=== PATIENT | female | born 2000 | race Caucasian/White ===

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

== ENCOUNTER → 2019-02-02 | Outpatient (CLI) | payer MEDICAID | LOC: SUN.DIA 07:44 | DX: O24.419 Gestational diabetes mellitus in pregnancy, unspecified control (principal); Z3A.29 29 weeks gestation of pregnancy | CPT/HCPCS: G0108 ==

== ENCOUNTER → 2019-02-17 | Outpatient (CLI) | payer MEDICAID ==
[~2019-02-17] MED LIST changes: +FLINTSTONES W/I1 CTB PO
== END ==
LOC: SUN.DIA 02-09 13:07
DX: O24.419 Gestational diabetes mellitus in pregnancy, unspecified control (principal); Z3A.35 35 weeks gestation of pregnancy
CPT/HCPCS: G0108

== ENCOUNTER → 2019-02-19 | Outpatient (CLI) | payer MEDICAID ==
[~2019-02-19] VITALS: Ht 157.5 cm; Wt 83.6 kg
[2019-02-19 13:56] VITALS: BP 127/73; PULSE 87; TEMP 98.3
[2019-02-19 14:20] VITALS: BP 127/73; PULSE 87; TEMP 98.3
--- NOTE | 2019-02-19 14:32 | NUR ---
[address] NGUYEN NOTIFIED OF PT PRESENCE ON UNIT AND EXAM RESULTS. ORDERS FOR DISCHARGE GIVEN. 1440 HOME CARE INSTRUCTIONS REVIEWED WITH PT AND SO. DENY QUESTIONS OR CONCERNS.
== END ==
LOC: COL.LAB 13:32 → LDRO 13:32
DX: O99.89 Other specified diseases and conditions complicating pregnancy, childbirth and the puerperium (principal); R10.30 Lower abdominal pain, unspecified; M54.5 Low back pain; Z3A.32 32 weeks gestation of pregnancy

== ENCOUNTER 2019-04-13 08:12 | Inpatient (IN) | payer OTHER ==
[~2019-04-13] VITALS: Ht 158.8 cm; Wt 89.5 kg
[2019-04-13] VITALS (8 sets, daily range): BP systolic 119–141; BP diastolic 67–96; PULSE 71–100; TEMP 98.4
--- NOTE | 2019-04-13 19:05 | NUR ---
G2L0. 41-0. Ambulatory to LDR 6 with significant other for scheduled cytotec induction. Clean gown on. EFM and TOCO explained and applied. Pt states she has been eduardo intermittently since 329 this morning. Pt states her contractions are about every 15 minutes apart. Pt breathing through contractions. Palpate moderate. SVE 2/80/-2 per Kristan ORTEGA. VS taken. Plan of care explained to pt and significant other at this time. Questions answered. 1934: Attempt to contract at this time. Message left. 1954: called second time and updated on pt's status. See physican notifcation. Pt and significant other updated on new plan of care and verbalize their understanding. 2036: IV started and labs obtained via IV site. LR bolus infusing per orders. Consents and assessment completed at this time. 2106: FHR strip not reactive at this time. 140bpms moderate variablity no accels, no decels noted. Pt repositioned to left lateral. Plan of care explained to pt. 2129: called update and plan of care changed and new orders received. See physican notifcation. 2203: Pt INT and monitors off to us bathroom for Clean catch UA and urine drug screen per protocol.
[2019-04-13 22:26] LABS: BASO % 0.3 % (0.0-2.0); EOS # 0.4 (0.0-0.7); EOS % 2.9 % (0-4.0); GRAN # 9.1 (1.4-6.5); GRAN % 70.4 % (42.2-75.2); HEMATOCRIT 34.9 % (35.0-45.0); HEMOGLOBIN 11.5 g/dl (12.0-15.0); LYMPH # 2.4 (1.2-3.4); LYMPH % 18.2 % (20.0-51.0); MEAN CELL VOLUME 85 fl (80.0-95.0); MEAN CORPUSCULAR HEMOGLOBIN 28 pg (26.0-32.0); MEAN CORPUSCULAR HGB CONC 33 g/dl (33.0-37.0); MEAN PLATELET VOLUME 9.9 fl (7.4-10.4); MONO % 7.7 % (1.7-9.3); PLATELET COUNT 420 K/mm3 (130-400); RED BLOOD COUNT 4.11 M/mm3 (4.10-5.30); REDCELL DISTRIBUTION WIDTH-CV 14.7 % (11.5-14.5)
[2019-04-13 22:35] LABS: ALANINE AMINOTRANSFERASE < 6 U/L (9-52); ALBUMIN 3.6 gm/dL (3.5-5.0); ALKALINE PHOSPHATASE 146 U/L (50-136); ANION GAP 8 mmol/L (7-16); AST,SGOT 20 U/L (15-37); BILIRUBIN,TOTAL 0.1 mg/dL (0.0-1.0); BLOOD UREA NITROGEN 10 mg/dL (7-17); CALCIUM 9.1 mg/dL (8.4-10.2); CARBON DIOXIDE 22 mmol/L (22-30); CHLORIDE 108 mmol/L (98-107); CREATININE, serum 0.58 (0.52-1.25); GLUCOSE 75 mg/dL (74-106); POTASSIUM 4.3 mmol/L (3.4-5.0); SODIUM 137 mmol/L (137-145); TOTAL PROTEIN 7.3 gm/dL (6.4-8.2)
--- NOTE | 2019-04-13 22:38 | NUR ---
FHR strip nonreactive. 125bpm moderate varibality, no accels or decels noted. Plan of care explained to pt and pt repostioned to right lateral. Juice and jello given and instructed to drink quickly. Pt verbalizes understanding. [id number]: Intermittently tracing contractions. Contractions palpate moderate with relaxtion between contractions. Monitors adjusted frequently. 2344: Monitors off and pt assisted to bathroom. difficulty tracing contractions still. Pt states she thinks contractions are every 15 minutes are increasing with intensity. 2350: Monitors reapplied and TOCO adjusted. Will continue to monitor closely.
[2019-04-13 22:56] LABS: COLLECTION METHOD CLEAN CATCH
[2019-04-13 23:03] LABS: MUCOUS Present /lpf; PH 8 (5-8); SQUAMOUS EPITHELIAL 0-2 /hpf; URINE APPEARANCE Clear; URINE BACTERIA None Seen /hpf; URINE BILIRUBIN Negative (NEGATIVE); URINE BLOOD Negative (NEGATIVE); URINE COLOR Yellow; URINE GLUCOSE Negative (NEGATIVE); URINE KETONE Negative (NEGATIVE); URINE LEUKOCYTE ESTERASE Negative (NEGATIVE); URINE NITRATE Negative (NEGATIVE); URINE PROTEIN(semi-quant) 1+ (NEGATIVE); URINE RBC 0-2 /hpf; URINE UROBILINOGEN Negative (NEGATIVE); URINE WBC 0-2 /hpf
[2019-04-13 23:08] LABS: TRICYCLIC ANTIDEPRESS URINE NEGATIVE
[2019-04-14] VITALS (58 sets, daily range): BP systolic 61–140; BP diastolic 21–94; PULSE 62–141; TEMP 98.1–98.8
--- NOTE | 2019-04-14 02:51 | NUR ---
Pt requesting for cervix to be checked due to determining whether or not she wants her epidural. SVE 2-/-2. Pt states she is going to think about it at this time. Questions answered. Will continue to monitor.
--- NOTE | 2019-04-14 03:22 | NUR ---
Pt requesting epidural at this time. LR bolus started infusing without difficulties. SAJAN Cheung notified. Pt updated on plan of care. 0358: SAJAN Cheung at bedside for epidural placement. Pt assisted to edge of bed. Difficulty tracing FHR due to maternal position. RN at bedside adjusting monitors. Pulse ox applied and tracing. 0406: Single shot administered by Skye MOELLER. See anesthesia records. 0409: Pt repositioned to wedge right position per request. Plan of care and safety precautions explained to pt and significant other who verbalize understanding. Call light within reach.
--- NOTE | 2019-04-14 05:06 | NUR ---
Draper inserted without difficulties. Pale yellow/clear urine noted. SVE unchanged. Pericare provided and pt repositioned to wedge left per request. 0515: FHR strip reactive. Pitocin explained and started at 2mus/hr per protocol. Will continue to monitor.
--- NOTE | 2019-04-14 05:31 | NUR ---
RN at bedside. FHR deceleration noted down to 100bpm with spontaneous return to baseline. 0532: RN remains at bedside and FHR deceleration noted down to 65bpms at lowest point, lasting 120 seconds. Pitocin turned off, LR bolus started, oxygen administered at 10L via oxymask and pt repositioned to left lateral. FHR remains in 80bpms and second RN to room for assistance. Pt repositioned to Right lateral position with spontaneous return to baseline. Plan of care explained to pt and significant other who verbalize understanding. Questions answered. 0545: BP 99/56, Ephedrine 10mg administered per orders. Retake BP 121/64. 0606: called and updated on pts status. See physican notification. 0615: Report given to Eugenio ORTEGA who will be taking over her care at this time.
--- NOTE | 2019-04-14 11:27 | NUR ---
0645 DR MCKENZIE HERE AND IN TO SEE PT. PLANOF CARE AND OPTIONS DISCUSSED IN DETAIL WITH PT AND SO. PLAN FOR AT 0800 THIS AM.
--- NOTE | 2019-04-14 11:29 | NUR ---
0700 PT TEARY BUT VERBALIZES UNDERSTANDING OF PLAN OF CARE. QUESTIONS INVITED AND ANSERED TO PT AND SPOUSE SATISFACTION. AND POST SURGERY PLAN DISCUSSED WITH PT.
--- NOTE | 2019-04-14 11:33 | NUR ---
07 FAMILYU IN TO SEE PT. 7148 MONS AND LOWER ABD CLIOPPED AND PREPPED WITH CHLOROHEXIDINE SCRUB.
--- NOTE | 2019-04-14 11:34 | NUR ---
0755 DR CEE HERE AND PT EPIDURAL DOSED FOR CASE. 0755 MONITORS OF AND PT TRANSPORTED VIA BED TO OR FOR CSECTION.
--- NOTE | 2019-04-14 11:51 | NUR ---
0850 ON ADMISSION TO PACU WHILE CONNECTING MONITORS PT SUDENLY LIFTED LEFT ARM STRAIGHT UP IN THE AIR AND STARTED TO HAVE GM SEIZURE. LASTED 20 SECONDS, PT REPSITIONED TO RT SIDE. O2 ON PER MASK AT 8 L/MIN. VS CHECKED. DUMPER BULK SYSTEM STILL IN ROOM AND MONITORING PT THROUGHTOUT AND AFTER SEIZURE. ONCE ENDED, PT REGAINED AWARENESS AFTER ABOUT 4 MINUTES. VS RETURNED TO NORMAL AND O2 SATS REMAINED STABLE THROUGHTOUT PROCESS.
--- NOTE | 2019-04-14 12:09 | NUR ---
0854 RESPONDING BETTER NOW. O2 OFF PER D JAYE MOELLER. REMAINS ON RT SIDE.
--- NOTE | 2019-04-14 12:10 | NUR ---
0855 MORE ALERT AND RESPONDING TO COMMANDS NOW
--- NOTE | 2019-04-14 12:11 | NUR ---
PT ENC TO REST. NO FURTHER SEIZURES. SO AT BEDSIDE. DATABASE SOFTWARE TECHNICIAN CHECKS BACK INWITH PT DOES .
--- NOTE | 2019-04-14 12:21 | NUR ---
0925 PT ALERT STBLE AND READY TO MOVE TO PP ROOM. MONITORS OFF AND TRANSPORTED TO 221 VIA BED. THIS RN REMAINS IN CARE OF PT.
--- NOTE | 2019-04-14 14:48 | NUR ---
0945 TO RM 221 VIA BED WITH ASSISTANCE QUEENIE HERNANDES. ORIENTATED TO SURROUNDINGS WATER AND JUICE PROVIDED ALONG WITH SALTINE CRACKERS. FAMILY IN TO SEE PATIENT AND .
--- NOTE | 2019-04-14 14:50 | NUR ---
PT RESTING AND VISITING WITH FAMILY. INFANT INTO ROOM AND ASISTED TO BREASST ON LT SIDE.
--- NOTE | 2019-04-14 14:54 | NUR ---
1115 COMPLAINING OF RT SIDED INCISIONAL PAIN. MEDICATED WITH PERCOCET 2 TABS FOR CONTROL OF PAIN. FAMILY IN TO SEE PT.
--- NOTE | 2019-04-14 14:55 | NUR ---
1200 CONITNUES TO VISIT WITH FAMILY DENIES NEEDS
--- NOTE | 2019-04-14 14:56 | NUR ---
1300 CONTINUES TO REST WITH LIGHTS OUT. DENIES NEEDS SLEEPING IN CRIB.
[2019-04-15 04:00] VITALS: BP 119/72; PULSE 94; TEMP 98.9
[2019-04-15] MEDS ORDERED: IBU800 M1 PO (09:28)
[2019-04-15] MEDS ORDERED: PERCOCET 325 MG1 TA2 PO (09:29)
[2019-04-15 10:03] VITALS: BP 124/74; PULSE 76; TEMP 97.7
--- NOTE | 2019-04-15 11:31 | NUR ---
Visited and congratulated the parents on their new baby.
--- NOTE | 2019-04-15 15:05 | NUR ---
JAMAL recieved consult for patient for SX-HX- Patient was negative, baby posi for methanphetamine. Nurse confirmed it was medication given during labor. Awaitng BCLS however this most likely is a false posi. Patients has history but no posi during tramaine care, in office, or upon arrival. No addtional concerns at this time. No report made.
[2019-04-15 16:21] VITALS: BP 119/65; PULSE 83; TEMP 98.5
[2019-04-15 20:55] VITALS: BP 121/74; PULSE 91; TEMP 98.3
[2019-04-16 08:12] VITALS: BP 138/79; PULSE 103; TEMP 98.5
[2019-04-16 16:27] VITALS: BP 116/74; PULSE 99
[2019-04-16 20:03] VITALS: BP 1363/83; PULSE 89; TEMP 98.4
--- NOTE | 2019-04-17 09:44 | NUR ---
Patient's baby's cord blood tested negative for illegal drugs in system.
== END 2019-04-16 20:55 | disposition home or self-care (01) | DRG 787 ==
LOC: LDR 08:12 → OB 04-14 10:00
PROVIDERS: ADMIT Student in an Organized Health Care Education/Training Program
PROC: 10D00Z1 Extraction of Products of Conception, Low, Open Approach (ICD-10-PCS; principal; 2019-04-14)
DX: O48.0 Post-term pregnancy (principal); G40.89 Other seizures; O76 Abnormality in fetal heart rate and rhythm complicating labor and delivery; Z3A.41 41 weeks gestation of pregnancy; Z37.0 Single live birth; O99.334 Smoking (tobacco) complicating childbirth; O24.420 Gestational diabetes mellitus in childbirth, diet controlled; O99.214 Obesity complicating childbirth; J45.909 Unspecified asthma, uncomplicated; K21.9 Gastro-esophageal reflux disease without esophagitis; O99.62 Diseases of the digestive system complicating childbirth; O99.52 Diseases of the respiratory system complicating childbirth
CPT/HCPCS: J0690; J1885; J2175; J2270; J2370; J2405; J2590; J2795; J3010; J7120

== ENCOUNTER 2019-10-06 14:50 | Emergency (ER) | payer OTHER ==
[~2019-10-06] VITALS: Ht 160 cm; Wt 79.8 kg
[~2019-10-06 14:50] MED LIST changes: +IBU800 M1 PO; +PERCOCET 325 MG1 TA2 PO
[2019-10-06 14:53] VITALS: BP 125/61; TEMP 98.3
[2019-10-06 17:01] VITALS: PULSE 90
== END 2019-10-06 17:01 | disposition home or self-care (01) ==
LOC: COL.ER 14:50
DX: H10.9 Unspecified conjunctivitis (principal); J06.9 Acute upper respiratory infection, unspecified; J45.909 Unspecified asthma, uncomplicated; F17.210 Nicotine dependence, cigarettes, uncomplicated

== ENCOUNTER 2019-10-09 02:21 | Emergency (ER) | payer OTHER ==
[~2019-10-09] VITALS: Ht 160 cm; Wt 79.5 kg
[2019-10-09 02:57] LABS: STREP SCREEN NEGATIVE
[2019-10-09] MEDS ORDERED: BACTRIM DS 8001 TAB PO (03:47)
[2019-10-09 05:18] VITALS: BP 95/52; PULSE 88; TEMP 98.4
== END 2019-10-09 05:27 | disposition home or self-care (01) ==
LOC: COL.ER 02:21
PROVIDERS: Physician Assistant
DX: B34.9 Viral infection, unspecified (principal); F17.210 Nicotine dependence, cigarettes, uncomplicated; Z79.1 Long term (current) use of non-steroidal anti-inflammatories (NSAID)
CPT/HCPCS: J1200; J1885; J2405; J3010; J7030

== ENCOUNTER 2021-01-28 05:46 | Inpatient (IN) | payer MEDICAID ==
[~2021-01-28] VITALS: Ht 158.8 cm; Wt 95.9 kg
[2021-01-28] VITALS (19 sets, daily range): BP systolic 107–136; BP diastolic 55–94; PULSE 16–108; TEMP 97.4–98.8
[~2021-01-28 05:46] MED LIST changes: +BACTRIM DS 8001 TAB PO
[2021-01-28] MEDS ORDERED: PROTONIX20 MG PO (06:26)
[2021-01-28] MEDS ORDERED: PRENATAL TABLET PO (06:27)
[2021-01-28] MEDS ORDERED: PROFERRIN ES12 MG PO (06:27)
[2021-01-28 06:46] LABS: BASO % 0.3 % (0.0-2.0); EOS # 0.6 (0.0-0.7); GRAN % 60.9 % (42.2-75.2); LYMPH % 26.8 % (20.0-51.0); MEAN CELL VOLUME 84 fl (80.0-100.0); MEAN CORPUSCULAR HEMOGLOBIN 28 pg (27.0-31.0); MEAN CORPUSCULAR HGB CONC 33 g/dl (33.0-37.0); MEAN PLATELET VOLUME 9.2 fl (7.4-10.4); MONO # 1.1 (0.1-0.6); MONO % 7.4 % (1.7-9.3); PLATELET COUNT 436 K/mm3 (130-400); RED BLOOD COUNT 4.34 M/mm3 (4.10-5.30); REDCELL DISTRIBUTION WIDTH-CV 16.8 % (11.5-14.5)
[2021-01-28 06:58] LABS: HEMATOCRIT 36.5 % (37.0-47.0)
--- NOTE | 2021-01-28 14:30 | NUR ---
Patient up to bathroom with standby assist, dior catheter removed and patient tolerates well, pericare done. New gown/underwear/pad on. Patient ambulates to nursery to see baby.
--- NOTE | 2021-01-28 18:25 | NUR ---
Patient asked if she has had any recent drug use, Patient states " Not since before I was with my first child, at least over two years ago".
[2021-01-29 01:25] VITALS: BP 125/83; PULSE 103
[2021-01-29 05:30] VITALS: BP 125/72; PULSE 91; TEMP 98.7
--- NOTE | 2021-01-29 09:38 | NUR ---
Initial visit attempt; Family out of room, Plastering Contractor left card of congratulations and God's blessings for the of patient's son and information regarding the availability of spiritual care at our hospital.
[2021-01-29 10:05] VITALS: BP 125/56; PULSE 83; TEMP 97.6
[2021-01-29 16:32] VITALS: BP 120/77; PULSE 82; TEMP 97.4
--- NOTE | 2021-01-29 18:30 | NUR ---
Report recieved. Up in rocking chair in the [facility] . POC reviewed.
[2021-01-29 20:40] VITALS: BP 135/82; PULSE 108; TEMP 98
[2021-01-30 06:50] VITALS: BP 131/68; PULSE 101; TEMP 98.1
[2021-01-30] MEDS ORDERED: IBU800 M1 PO (08:26)
[2021-01-30] MEDS ORDERED: PERCOCET 325 MG1 TA2 PO (08:27)
--- NOTE | 2021-01-30 10:13 | NUR ---
Initial visit; Parents thanked Rafter Cutting Machine Operator for offering congratulations and God's blessings for the of their son. Rafter Cutting Machine Operator thanked family for choosing [facility].
[2021-01-30 13:08] VITALS: BP 123/69; PULSE 82
--- NOTE | 2021-01-30 17:14 | NUR ---
Pt reports she wants to wait and take her Senokot later this evening.
[2021-01-30 17:44] VITALS: BP 138/69; PULSE 103; TEMP 97.3
--- NOTE | 2021-01-30 17:45 | NUR ---
At 1630 pt reported that she was going to go for a walk outside. At 1720 pt still had not returned. 1730 Attempted to call phone numbers on chart and numbers disconnected, 1740 Found a phone number in the computer charting and voicemail left. 1745 Pt and her significant other return and report they have been in the ER parking lot, they had family bring some things. Educated on policy while being a patient and not to be visiting with family outside due to COVID. Pt and significant other are understanding and apologetic.
--- NOTE | 2021-01-30 18:30 | NUR ---
Reprot recieved. at this time. Updated whiteboard and reviewed POC. Questions invited.
[2021-01-30 19:15] VITALS: BP 121/70; PULSE 94; TEMP 97.8
[2021-01-31 07:25] VITALS: BP 121/75; PULSE 86; TEMP 97.8
== END 2021-01-31 11:00 | disposition home or self-care (01) | DRG 788 ==
LOC: OB 05:46
PROVIDERS: ADMIT Student in an Organized Health Care Education/Training Program
PROC: 10D00Z1 Extraction of Products of Conception, Low, Open Approach (ICD-10-PCS; principal; 2021-01-28)
DX: O34.211 Maternal care for low transverse scar from previous cesarean delivery (principal); O48.0 Post-term pregnancy; Z37.0 Single live birth; Z88.0 Allergy status to penicillin; O99.62 Diseases of the digestive system complicating childbirth; K21.9 Gastro-esophageal reflux disease without esophagitis; O99.52 Diseases of the respiratory system complicating childbirth; O43.123 Velamentous insertion of umbilical cord, third trimester; J45.909 Unspecified asthma, uncomplicated; O99.02 Anemia complicating childbirth; D64.9 Anemia, unspecified; O99.214 Obesity complicating childbirth; E66.9 Obesity, unspecified; O24.420 Gestational diabetes mellitus in childbirth, diet controlled; Z3A.40 40 weeks gestation of pregnancy
CPT/HCPCS: J0690; J1885; J2175; J2370; J2405; J2550; J2590; J3010; J7120

== ENCOUNTER 2021-09-20 12:45 | Emergency (ER) | payer MEDICAID ==
[~2021-09-20] VITALS: Ht 160 cm; Wt 84.1 kg
[~2021-09-20 12:45] MED LIST changes: +PRENATAL TABLET PO; +PROFERRIN ES12 MG PO; +PROTONIX20 MG PO
[2021-09-20 13:06] VITALS: BP 136/91; PULSE 83; TEMP 98.2
[2021-09-20 14:39] LABS: STREP SCREEN NEGATIVE
[2021-09-20] MEDS ORDERED: JUNEL FE 1/20 21 TAB PO (14:39)
[2021-09-20] MEDS ORDERED: PREDNISONE20 MG PO (15:01)
== END 2021-09-20 15:12 | disposition home or self-care (01) ==
LOC: COL.ER 12:45
PROVIDERS: Nurse Practitioner
DX: J45.909 Unspecified asthma, uncomplicated (principal); F17.210 Nicotine dependence, cigarettes, uncomplicated; Z79.899 Other long term (current) drug therapy
CPT/HCPCS: J7512